=== PATIENT | male | born 1950 | race Caucasian/White ===

== ENCOUNTER 2018-11-25 08:27 | Observation (INO) | payer OTHER ==
[~2018-11-25] VITALS: Ht 185.4 cm; Wt 129.5 kg
[~2018-11-25 08:27] MED LIST: AMIODARONE HCL 150 MG in DEXTROSE 5%-WATER 100 ML IV SCH; AMIODARONE HCL IV SCH; DEXTROSE 5% IV SCH; WATER IV SCH
[2018-11-25 09:17] LABS: BASOPHILS % (AUTO) 1.6 % (0.0-5.0); HEMATOCRIT 35.1 % (42-54); MEAN CORPUSCULAR HEMOGLOBIN 32.5 pg (27.0-33.0); MEAN CORPUSCULAR HGB CONC 34.5 g/dL (32.0-36.0); MEAN CORPUSCULAR VOLUME 94.3 fL (79-99); MONOCYTES % (AUTO) 8.7 % (3.0-13.0); NEUTROPHILS % (AUTO) 69.7 % (40.0-77.0); PLATELET COUNT (AUTO) 130 K/uL (130-400); RED BLOOD CELL COUNT(AUTO) 3.73 MIL/uL (4.50-6.20); RED CELL DISTRIBUTION WIDTH 13.7 % (11.0-15.5); WHITE BLOOD COUNT (AUTO) 3.1 K/uL (4.8-10.8)
[2018-11-25 09:29] LABS: INR 1.02 (0.85-1.15); PARTIAL THROMBOPLASTIN TIME 30.6 SEC (26.3-35.5); PROTHROMBIN TIME 10.7 SEC (9.6-11.6)
[2018-11-25 10:07] LABS: CARBON DIOXIDE 21 mmol/L (21-32); CHLORIDE 102 mmol/L (101-111); CREATININE 1.4 mg/dL (0.5-1.5); GLOMERULAR FILTR. RATE CALC 53 mL/min (>60); GLUCOSE,RANDOM 146 mg/dL (70-105); POTASSIUM 4.1 mmol/L (3.5-5.1); SODIUM SERUM 137 mmol/L (136-145); UREA NITROGEN, BLOOD 21 mg/dL (7-18)
[2018-11-25 10:21] LABS: ALANINE AMINOTRANSFERASE 24 U/L (12-78); ALBUMIN 3.6 g/dL (3.5-5.0); ASPARTATE AMINOTRANSFERASE 25 U/L (10-37); BILIRUBIN,TOTAL 0.6 mg/dL (0.2-1.0); MYOGLOBIN 246 ng/mL (10-92); TOTAL PROTEIN, SERUM 6.8 g/dL (6.0-8.3); TROPONIN I < 0.04 ng/mL (0.00-0.06)
[2018-11-25] MEDS ORDERED: ZOSYN 3.375GM+NS 50ML 50 ML IV ONE (10:35)
[2018-11-25 10:36] LABS: CREATINE KINASE, TOTAL 495 U/L (21-232)
[2018-11-25 10:44] LABS: APPEARANCE,URINE Clear (CLEAR); BILIRUBIN,URINE Negative (NEGATIVE); COLOR,URINE Yellow (YELLOW); GLUCOSE, URINE (UA) Negative (NEGATIVE); KETONES,URINE Negative (NEGATIVE); LEUKOCYTE ESTERASE ,URINE Negative (NEGATIVE); NITRATE,URINE Negative (NEGATIVE); OCCULT BLOOD,URINE Negative (NEGATIVE); PROTEIN,URINE Negative (NEGATIVE); UROBILINOGEN,URINE 0.2 mg/dL (0.2-1.0)
[2018-11-25 11:13] LABS: AMPHET/METH SCREEN,URINE NEGATIVE (NEGATIVE); BARBITURATE SCREEN, URINE NEGATIVE (NEGATIVE); BENZODIAZEPINES SCREEN,URINE NEGATIVE (NEGATIVE); CANNABINOID SCREEN,URINE NEGATIVE (NEGATIVE); COCAINE SCREEN,URINE NEGATIVE (NEGATIVE); OPIATE SCREEN,URINE NEGATIVE (NEGATIVE); PHENCYCLIDINE SCREEN,URINE NEGATIVE (NEGATIVE)
[2018-11-25 13:11] VITALS: BP 116/50
--- NOTE | 2018-11-25 14:03 | NUR ---
SPOKE WITH DR. JAMESON AND INFORMED HIM OF THE NEW CONSULT.
[2018-11-25 15:48] VITALS: BP 103/46
[2018-11-25 18:00] LABS: TROPONIN I 0.05 ng/mL (0.00-0.06)
[2018-11-25] MEDS: SODIUM CHLORIDE 0.9% 1000ML 1,000 ML IV SCH (18:21)
[2018-11-25] MEDS ORDERED: METO25TA6 PO (18:48)
[2018-11-25] MEDS ORDERED: DIVA500T52 PO (18:48)
[2018-11-25] MEDS ORDERED: LISI-613 PO (18:48)
[2018-11-25] MEDS ORDERED: CEPH500T PO (18:48)
[2018-11-25] MEDS ORDERED: RIVA20TA PO (18:48)
[2018-11-25] MEDS ORDERED: ATOR40TA71 PO (18:48)
[2018-11-25] MEDS ORDERED: LEVO25TA54 PO (18:48)
[2018-11-25] MEDS ORDERED: QUET400T12 PO (18:48)
[2018-11-25] MEDS ORDERED: LORA1TAB3 PO (18:48)
[2018-11-25 19:15] VITALS: BP 142/63
[2018-11-25] MEDS ORDERED: LORAZEPAM 1 MG TABLET PO PRN (21:15)
[2018-11-25 23:24] VITALS: BP 117/62
[2018-11-26 01:11] LABS: HEMATOCRIT 34.1 % (42-54); MEAN CORPUSCULAR HEMOGLOBIN 33.2 pg (27.0-33.0); MEAN CORPUSCULAR VOLUME 94.9 fL (79-99); PLATELET COUNT (AUTO) 130 K/uL (130-400); RED BLOOD CELL COUNT(AUTO) 3.59 MIL/uL (4.50-6.20); RED CELL DISTRIBUTION WIDTH 13.5 % (11.0-15.5); WHITE BLOOD COUNT (AUTO) 5.2 K/uL (4.8-10.8)
[2018-11-26 01:35] LABS: BAND NEUTROPHILS % (MANUAL) 1 % (0-2); CREATININE 1.1 mg/dL (0.5-1.5); EOSINOPHILS % (MANUAL) 2 % (1-6); LYMPHOCYTES % (MANUAL) 20 % (22-44); MAGNESIUM 2.1 mg/dL (1.80-2.40); MAN.DIFF COMMENT-IMPRESSION MANUAL DIFFERENTIAL; MONOCYTES % (MANUAL) 4 % (2-9); POTASSIUM 4.1 mmol/L (3.5-5.1); SEGMENTED NEUTROPHILS % 73 % (40-70); THYROID STIMULATING HORMONE 1.24 uIU/mL (0.36-3.74); TROPONIN I 0.07 ng/mL (0.00-0.06)
[2018-11-26 01:36] LABS: PLATELET MORPHOLOGY COMMENT SLIGHTLY DECREASED
[2018-11-26 04:22] VITALS: BP 116/61
[2018-11-26] MEDS ORDERED: LEVOTHYROXINE 25 MCG TABLET PO SCH (06:30)
[2018-11-26 07:46] VITALS: BP 136/64
[2018-11-26] MEDS: SODIUM CHLORIDE 0.9% 1000ML 1,000 ML IV SCH (08:10)
--- NOTE | 2018-11-26 08:10 | NUR ---
Assessed per charting. Patient denies pain and needs. Patient has been ambulating in halls, steady gait, does not seem to be seeking exits. Currently in SR, monitoring tech reports no episodes of Afib. Morning medications given. Bed locked and low, call light in reach, non-slip socks on. Will continue to monitor.
[2018-11-26] MEDS ORDERED: LISINOPRIL 20 MG TABLET PO SCH (09:00)
[2018-11-26] MEDS ORDERED: METOPROLOL TARTRATE 25 MG TAB PO SCH (09:00)
[2018-11-26] MEDS ORDERED: ASPIRIN 81MG TAB.CHEW PO SCH (09:00)
[2018-11-26] MEDS ORDERED: DIVALPROEX SODIUM 250 MG TABLET.DR PO SCH (09:00)
[2018-11-26 11:27] VITALS: BP 129/77
--- NOTE | 2018-11-26 16:44 | NUR ---
Per Patient's request, discharge education called to his sister Zuleyma, . Informed her of follow up appointments and to continue all medications. She was able to teach back this information and states she will get his medications refilled from the pharmacy. Zuleyma states a friend will be here to tack picker the patient around 6pm to ensure that the patient gets home safely. No questions at this time.
[2018-11-26] MEDS ORDERED: RIVAROXABAN 10 MG TABLET PO SCH (17:00)
--- NOTE | 2018-11-26 18:00 | NUR ---
Patient signed discharge paperwork. Patient's provider Ana here to take him home. No questions at this time.
[2018-11-26] MEDS ORDERED: ATORVASTATIN CALCIUM 40 MG TABLET PO SCH (21:00)
[2018-11-26] MEDS ORDERED: QUETIAPINE FUMARATE 100 MG TAB PO SCH (21:00)
== END 2018-11-26 18:00 | disposition home or self-care (01) ==
LOC: EDH 08:27 → INTOOBSV 11:10 → EDHIP 11:10 → 2AH 13:14
PROVIDERS: ADMIT Internal Medicine Infectious Disease; ATTEND Internal Medicine Infectious Disease
DX: I48.0 Paroxysmal atrial fibrillation (principal); I11.9 Hypertensive heart disease without heart failure; G40.909 Epilepsy, unspecified, not intractable, without status epilepticus; E03.9 Hypothyroidism, unspecified; R42 Dizziness and giddiness; E66.9 Obesity, unspecified; E78.5 Hyperlipidemia, unspecified; I65.22 Occlusion and stenosis of left carotid artery; F20.9 Schizophrenia, unspecified; F10.129 Alcohol abuse with intoxication, unspecified; F31.9 Bipolar disorder, unspecified; Z86.73 Personal history of transient ischemic attack (TIA), and cerebral infarction without residual deficits; Z85.46 Personal history of malignant neoplasm of prostate; Z91.19 Patient's noncompliance with other medical treatment and regimen; Z92.3 Personal history of irradiation; Z98.42 Cataract extraction status, left eye; Z88.0 Allergy status to penicillin; Z79.899 Other long term (current) drug therapy
CPT/HCPCS: 36415 ×2; 71045; 80048; 80053; 80164; 80178; 80305; 81003; 82550 ×3; 83605 ×2; 83735; 83874 ×3; 83880; 84439; 84443; 84484 ×3; 85025 ×2; 85610; 85730; 87040 ×2; 87088; 93005 ×2; 96360; 96361 ×2; 99291; G0378 ×31; G0480; J0282 ×2; J2543; J7030; J7060 ×2